=== PATIENT | female | born 1965 | race American Indian/Alaskan Native ===

== ENCOUNTER 2022-02-11 09:50 | Outpatient (CLI) | payer OTHER ==
--- NOTE | 2022-02-11 12:16 | XRay Report ---
BILATERAL KNEES 2 VIEWS INDICATION: BILATERAL KNEE PAIN. COMPARISON: None. IMPRESSION: [id number] tricompartmental osteoarthritic changes are identified throughout both knees. The right knee appears slightly more affected. Trace knee effusions are identified bilaterall y. The soft tissues are otherwise unremarkable. A small osteochondroma projects from the medial metap hysis of the distal left femur measuring 1.3 x 1.1 cm. No evidence for fracture or suspicious bony le marcia. Signer Name: Jordy Perez Jr, MD Signed: 02/11/2022 12:11 PM Workstation Name: [id number]
== END 2022-02-11 09:51 | disposition home or self-care (01) ==
LOC: XRAY 09:50
PROVIDERS: ATTEND Internal Medicine
DX: M17.0 Bilateral primary osteoarthritis of knee (principal); D16.9 Benign neoplasm of bone and articular cartilage, unspecified